=== PATIENT | female | born 1985 | race African-American/Black ===

== ENCOUNTER 2016-10-04 09:11 | Emergency (ER) | payer OTHER ==
[~2016-10-04] VITALS: Ht 165.1 cm; Wt 82.6 kg
[~2016-10-04 09:11] MED LIST: CLIN-44 PO; HYDR-971 PO; HYDR25TA PO; NAPR500T8 PO; TRIA15CR TP
[2016-10-04 09:38] VITALS: BP 137/78
[2016-10-04] MEDS ORDERED: NAPR500T3 PO (09:38)
--- NOTE | 2016-10-04 10:01 | RAD ---
Indication pain. No history of recent injury. AP oblique and lateral views of the right knee were obtained. No bony abnormality is seen
[2016-10-04] MEDS ORDERED: TRAM-29 PO (11:34)
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
== END 2016-10-04 11:50 | disposition home or self-care (01) ==
LOC: ER 09:11
DX: M25.561 Pain in right knee (principal); M79.651 Pain in right thigh; J45.909 Unspecified asthma, uncomplicated; F12.10 Cannabis abuse, uncomplicated; Z87.891 Personal history of nicotine dependence; Z88.0 Allergy status to penicillin
CPT/HCPCS: 73564; 99284

== ENCOUNTER 2017-05-02 11:58 | Emergency (ER) | payer OTHER ==
[~2017-05-02] VITALS: Ht 167.6 cm; Wt 95.3 kg
[~2017-05-02 11:58] MED LIST changes: -CLIN-44 PO; +CLIN150C14 PO; +NAPR500T4 PO; +TRAM-48 PO
[2017-05-02] MEDS ORDERED: IBUPROFEN 600 MG TABLET. PO ONE (12:15)
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
--- NOTE | 2017-05-02 12:38 | EKG ---
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
--- NOTE | 2017-05-02 12:49 | RAD ---
Indication: Chest pain. Technique: Upright portable chest radiograph was obtained. No comparison is available. Findings: The lungs are clear. Calcified granuloma is noted on the right. The cardiopulmonary silhouette is within normal limits. There are calcified right paratracheal and right hilar lymph nodes. The bony structures are intact. Leads overlie the patient. Impression: No active pulmonary disease.
[2017-05-02 13:17] VITALS: BP 107/58
== END 2017-05-02 13:36 | disposition home or self-care (01) ==
LOC: ER 11:58
DX: M94.0 Chondrocostal junction syndrome [Tietze] (principal); J45.909 Unspecified asthma, uncomplicated; Z88.0 Allergy status to penicillin
CPT/HCPCS: 36415; 71010; 81025; 84484; 85379; 93005; 99285-25

== ENCOUNTER 2021-05-23 11:49 | Emergency (ER) | payer MEDICAID, OTHER ==
[~2021-05-23] VITALS: Ht 167.6 cm; Wt 101.2 kg
[~2021-05-23 11:49] MED LIST changes: -CLIN150C14 PO; +CLIN150C16 PO; +HYDR-3164 PO; -HYDR-971 PO; +NAPR-514 PO; -NAPR500T4 PO
[2021-05-23] MEDS ORDERED: IBUPROFEN 200 MG TABLET. PO ONE (12:30)
[2021-05-23] MEDS ORDERED: CYCLOBENZAPRINE 10 MG TABLET. PO ONE (12:30)
[2021-05-23 12:42] LABS: BILIRUBIN,URINE NEGATIVE (NEG); CLARITY,URINE CLEAR; COLOR,URINE YELLOW; NITRITE,URINE NEGATIVE (NEG); PH,URINE 7.5 (<5.0-8.0); PROTEIN,URINE NEGATIVE (NEG-TRACE); UROBILINOGEN,URINE 0.2 mg/dL (0.2 mg/dL)
[2021-05-23 12:55] LABS: BACTERIA,URINE 0 /HPF (0-FEW); RBC,URINE 0 /HPF (0-2); WBC,URINE 0 /HPF (0-4)
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
[2021-05-23] MEDS ORDERED: HYDR-2761 PO (14:52)
[2021-05-23] MEDS ORDERED: CYCL5TAB PO (14:52)
[2021-05-23] MEDS ORDERED: IBUP-1007 PO (14:52)
[2021-05-23 15:04] VITALS: BP 139/82
--- NOTE | 2021-05-23 18:50 | EKG ---
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
== END 2021-05-23 15:40 | disposition home or self-care (01) ==
LOC: ER 11:49
DX: S22.21XA Fracture of manubrium, initial encounter for closed fracture (principal); R07.89 Other chest pain; R51.9 Headache, unspecified; R10.32 Left lower quadrant pain; J45.909 Unspecified asthma, uncomplicated; F17.200 Nicotine dependence, unspecified, uncomplicated; Z88.0 Allergy status to penicillin; V49.49XA Driver injured in collision with other motor vehicles in traffic accident, initial encounter; Y93.89 Activity, other specified; Y92.488 Other paved roadways as the place of occurrence of the external cause; Y99.8 Other external cause status
CPT/HCPCS: 36415; 71250; 74176; 81001; 81025; 84484; 93005; 99284-25; 99285-25